=== PATIENT | male | born 1955 | race Caucasian/White ===

== ENCOUNTER 2018-10-30 01:37 | Outpatient (CLI) | payer SELFPAY ==
[2018-10-30 22:16] LABS: Kit/Specimen SENT
== END 2018-10-30 01:57 ==
DX: R69 Illness, unspecified (principal); Z01.89 Encounter for other specified special examinations

== ENCOUNTER 2020-03-14 10:18 | Outpatient (REF) | payer MEDICARE, BC, MEDICAID, SELFPAY ==
--- OUTSIDE RECORDS SUMMARY | 2020-03-14 10:21 | XMS_ITS ---
:1955 Author Care Team Providers Name Role Phone LI ARREGUIN MD Primary Care Provider [phone] Allergies Code Code System Name Reaction Severity Status Onset NKDA ? Medications Name Status Start Date Stop Date ? ? phenytoin Active ? Not available Problems Name Status Onset Date Source ? Localization-related Symptomatic Epilepsy Active ? History Disorder of Skin And/or Subcutaneous Tissue Active ? History Procedures Date Name Performed by ? ? 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 Notes: Dupuytren's Release Rt Thumb, Ring & Small finger 02/08/14 12/16/2017 XR, Shoulder, 2 or More View [facility] Radiology (Internal) [address] [place] [address] ([address]) 12/16/2017 MRI, Shoulder, W/o Contrast [facility] Radiology (Internal) [address] [place] [address] (Work [address]) 12/16/2017 XR, Eye, for Foreign Body [facility] Radiology (Internal) [address] [place] [address] ([address]) 01/16/2018 Unlisted Imaging Order [facility] Radiology (Internal) [address] [place] [address] (Work [address]) Results Lab Results None recorded. Past Encounters None recorded. Social History Tobacco Smoking Status Former Smoker Vaccine List None recorded. Plan of Care Reminders Provider Appointments None ? ? recorded. Lab None ? ? recorded. Referral None ? ? recorded. Procedures None ? ? recorded. Surgeries None ? ? recorded. Imaging None ? ? recorded. Vitals 12/16/2017 03:00PM Consult 30 Height Weight BMI 182.88 cm 92.99 kg 27.8 kg/m2 02/15/2014 Height Weight 182.88 cm 87.54 kg
[2020-03-14 21:42] LABS: PHENYTOIN (DILANTIN) 21.6 ug/mL (10.0-20.0)
== END 2020-03-14 10:38 ==
LOC: NCHCN 10:18
PROVIDERS: Visit Provider Nurse Practitioner Family
DX: R56.9 Unspecified convulsions (principal); Z51.81 Encounter for therapeutic drug level monitoring
CPT/HCPCS: 80185

== ENCOUNTER 2020-03-24 13:27 | Outpatient (REF) | payer MEDICARE, BC, MEDICAID, SELFPAY ==
[2020-03-24 21:47] LABS: PHENYTOIN (DILANTIN) 17.1 ug/mL (10.0-20.0)
== END 2020-03-24 13:47 ==
LOC: NCHCN 13:27
PROVIDERS: Visit Provider Nurse Practitioner Family
DX: R56.9 Unspecified convulsions (principal); Z51.81 Encounter for therapeutic drug level monitoring; Z79.899 Other long term (current) drug therapy
CPT/HCPCS: 80185

== ENCOUNTER 2020-04-07 19:41 | Outpatient (REF) | payer MEDICARE, BC, MEDICAID, SELFPAY ==
[2020-04-07 20:56] LABS: PHENYTOIN (DILANTIN) 15.6 ug/mL (10.0-20.0)
[2020-04-08 17:56] LABS: PSA, Screening 0.4 ng/mL (0.0-4.5)
== END 2020-04-07 20:01 ==
LOC: NCHCN 19:41
PROVIDERS: Visit Provider Nurse Practitioner Family
DX: Z51.81 Encounter for therapeutic drug level monitoring (principal); Z12.5 Encounter for screening for malignant neoplasm of prostate
CPT/HCPCS: 84153; 80185

== ENCOUNTER 2023-08-31 16:53 | Outpatient (REF) | payer MEDICARE, BC, SELFPAY ==
--- NOTE | 2023-08-31 11:00 | SKI_PTH ---
PATIENT: Mehreen Ryder LOC: [facility]#:[id number] AGE/SX: 68/M ROOM: RE08/31/[address]: Yaima Adan : 1955 BED: DIS: 08/31/2023 SPEC #: [id number] RECD: 08/31/23 17:45 STATUS: MOSHE REQ #: [id number] KWASI: 08/31/23 11:[address]: Yaima Adan DEPT: Surgical Specimen RECD BY: Atiya Somers ENTERED: 08/31/23 17:46 SP TYPE: JP BURGOS DR: Unknown,Unknown Tissues: 1 - SKIN BIOPSY(SHAVE/PUNCH) Procedures: SKIN LEVEL 4 Comments: [id number]
== END 2023-08-31 16:54 | disposition home or self-care (01) ==
LOC: NCHCN 16:53
PROVIDERS: Visit Provider Internal Medicine
DX: D48.5 Neoplasm of uncertain behavior of skin (principal); L82.1 Other seborrheic keratosis
CPT/HCPCS: 88305

== ENCOUNTER 2025-01-28 10:36 | Outpatient (REF) | payer MEDICARE, BC, SELFPAY ==
[2025-01-28 16:13] LABS: HCT 43.9 % (40.0-50.0); HGB 14.8 g/dL (13.5-17.5); MCH 32.0 pg (27.0-33.0); MCHC 33.7 % (32.0-36.0); MCV 95 fL (80-95); MPV 9.6 fL (8.0-11.0); Platelet Count 210 10^3/uL (130-400); RBC 4.62 10^6/uL (4.36-5.78); RDW 11.7 % (11.8-14.1); RDW-SD 40.4 fL; WBC 5.16 10^3/uL (4.4-10.8)
[2025-01-28 16:47] LABS: ALT 35 U/L (16-63); AST 26 U/L (15-37); Albumin 4.2 g/dL (3.4-5.0); Alkaline Phosphatase 111 U/L (46-116); Anion Gap 7.2 mmol/L (3-11); BUN 23 mg/dL (7-18); Bilirubin, Total 0.4 mg/dL (0.2-1.0); CO2 31.8 mmol/L (21.0-32.0); Calcium 9.2 mg/dL (8.5-10.1); Chloride 104 mmol/L (98-107); Cholesterol 213 mg/dL (<200); Glucose 101 mg/dL (74-106); HDL Cholesterol 88 mg/dL (>or=40); Potassium 3.6 mmol/L (3.5-5.1); Sodium 143 mmol/L (136-145); Total Protein 7.4 g/dL (6.4-8.2)
[2025-01-29 09:14] LABS: PSA, Screening 0.4 ng/mL (<=6.5)
== END 2025-01-28 10:37 | disposition home or self-care (01) ==
LOC: NCHCN 10:36
PROVIDERS: PCP Internal Medicine; Visit Provider Internal Medicine
DX: E66.9 Obesity, unspecified (principal); Z12.5 Encounter for screening for malignant neoplasm of prostate
CPT/HCPCS: 80053; 80061; 84153; 85027